=== PATIENT | male | born 1965 | race Caucasian/White ===

== ENCOUNTER 2020-09-27 12:22 | Emergency (ER) | payer SELFPAY ==
[~2020-09-27] VITALS: Ht 182.9 cm; Wt 101.0 kg
[2020-09-27 12:22] VITALS: BP 114/86
[~2020-09-27 12:22] MED LIST: NAPR220C4 PO
--- NOTE | 2020-09-27 13:11 | PHYS DOC ---
Past History Past Medical History: Hepatitis Past Surgical History: Appendectomy, Cholecystectomy, Tonsillectomy Alcohol Use: None Drug Use: None General Adult EDM: Chief Complaint: MULTIPLE COMPLAINTS HPI: HPI: Patient is a 54 year old male with history of hepatitis C who presents with 2 weeks of inability to taste/smell, nasal congestion, diarrhea, poor appetite, and chills. Patient got his first shot from the vaccine approximately 10 days ago. Also com plaining of some muscle aches in his low back. No numbness or weakness. He complains of right upper quadrant discomfort that only comes with defecation. It is not postprandial. States that he has 2 daughters living at home that have had similar cold/flulike symptoms. He believes that they have been tested for Covid, and thinks it was negative. Review of Systems: Review of Systems: Constitutional: Denies fever. Reports chills Eyes: Denies change in visual acuity HENT: Reports nasal congestion. Denies sore throat. Respiratory: Reports mild cough. Denies shortness of breath Cardiovascular: Denies chest pain or edema GI: Reports nausea and diarrhea. Reports poor appetite. Reports occasional right upper quadrant pain. : Denies dysuria Musculoskeletal: Reports low back pain. No joint pain Integument: Denies rash Neurologic: Denies headache, focal weakness or sensory changes Endocrine: Denies polyuria or polydipsia Lymphatic: Denies swollen glands Psychiatric: Denies depression or anxiety Allergies: Allergies: Allergies Coded Allergies Type Severity Reaction Last Updated Verified No Known Drug Allergies 03/17/15 No Physical Exam: PE: Constitutional: Well developed, well nourished, no acute distress, non-toxic appearance. [] HENT: Normocephalic, atraumatic, bilateral external ears normal, oropharynx moist, no oral exudates, nose normal. [] Eyes: PERRLA, EOMI, conjunctiva normal, no discharge. [] Neck: Normal range of motion, no tenderness, supple, no stridor. [] Cardiovascular:Heart rate regular rhythm, no murmur [] Lungs & Thorax: Bilateral breath sounds clear to auscultation [] Abdomen: Soft. Nondistended. Very mild tenderness in the epigastrium and right upper quadrant. No rebound or guarding.. Skin: Warm, dry, no erythema, no rash. [] Back: No tenderness, no CVA tenderness. [] Extremities: No tenderness, no cyanosis, no clubbing, ROM intact, no edema. [] Neurologic: Alert and oriented X 3, normal motor function, normal sensory function, no focal deficits noted. [] Psychologic: Affect normal, judgement normal, mood normal. [] EKG: EKG: [] Radiology/Procedures: Radiology/Procedures: [] Heart Score: C/O Chest Pain: N/A Risk Factors: Risk Factors: DM, Current or recent (<one month) smoker, HTN, HLP, family history of CAD, obesity. Risk Scores: Score 0 - 3: 2.5% MACE over next 6 weeks - Discharge Home Score 4 - 6: 20.3% MACE over next 6 weeks - Admit for Clinical Observation Score 7 - 10: 72.7% MACE over next 6 weeks - Early Invasive Strategies Course & Med Decision Making: Course & Med Decision Making Pertinent Labs and Imaging studies reviewed. (See chart for details) Patient is a 54-year-old male with history of hepatitis C, cholecystectomy, ap pendectomy who presents with 2 weeks of loss of taste/smell, chills, nasal congestion, diarrhea, fatigue, poor appetite, and muscle aches. Reports his daughters have similar symptoms at home. He received his first dose of vaccine for Covid 10 days ago. He is requesting a Covid test. On arrival is afebrile. Hemodynamically stable. Satting well on room air. Appears appropriately hydrated. We will check CBC, CMP, lipase. With his low back pain will check a UA to ensure no hematuria. We will swab for Covid. 1310 During his stay a swab that was obtained earlier this week at [facility] resulted positive. Patient notified staff. CBC, CMP without acute process. UA without signs of infection, but do show some slight dehydration. Vital signs and oxygenation remained stable. Feel he is safe for discharge with expectant management of his Covid infection. 1521 Shantal Disclaimer: Shantal Disclaimer: This electronic medical record was generated, in whole or in part, using a voice recognition dictation system. Departure Departure: Impression: Primary Impression: COVID Disposition: HOME / SELF CARE / HOMELESS Condition: STABLE Referrals: PCP,NO (PCP) Additional Instructions: You have Covid. Please try to stay well-hydrated. If your breathing becomes more difficult please return the emergency department for reevaluation. JUNE,ALISA E MD Sep 27, 2020 13:11
[2020-09-27 14:01] LABS: BASO % 1 % (0-3); EOS % 0 % (0-3); HEMATOCRIT 45.1 % (39.0-53.0); HEMOGLOBIN 15.1 g/dL (13.0-17.5); LYMPH % 21 % (24-48); MEAN CORPUSCULAR HEMOGLOBIN 30 pg (25-35); MEAN CORPUSCULAR HGB CONC 34 g/dL (31-37); MEAN CORPUSCULAR VOLUME 89 fL (79-100); MONO # 0.6 x10^3/uL (0.0-1.1); MONO % 13 % (0-9); NEUT % 65 % (31-73); PLATELET COUNT 156 x10^3/uL (140-400); RED BLOOD COUNT 5.05 x10^6/uL (4.30-5.70); RED CELL DISTRIBUTION WIDTH 13.9 % (11.5-14.5); WHITE BLOOD COUNT 4.6 x10^3/uL (4.0-11.0)
[2020-09-27 14:36] LABS: BACTERIA,URINE 0 /HPF (0-FEW); BILIRUBIN,URINE SMALL (NEG); CLARITY,URINE CLEAR; COLOR,URINE YELLOW; GLUCOSE,URINE NEG (NEG); GRANULAR CASTS,URINE OCC /HPF; HYALINE CASTS, URINE OCC /HPF; NITRITE,URINE NEG (NEG); RBC,URINE OCC /HPF (0-2)
[2020-09-27 15:06] LABS: CALCIUM 9.1 mg/dL (8.5-10.1); GFR 78.5; POTASSIUM 3.5 mmol/L (3.5-5.1)
[2020-09-27 15:11] LABS: ALBUMIN 3.8 g/dL (3.4-5.0); TOTAL BILIRUBIN 0.4 mg/dL (0.2-1.0); TOTAL PROTEIN 7.6 g/dL (6.4-8.2)
== END 2020-09-27 15:35 | disposition home or self-care (01) ==
LOC: ER 12:22
DX: U07.1 COVID-19 (principal); Z90.49 Acquired absence of other specified parts of digestive tract
CPT/HCPCS: 36415; 80053; 81001; 83690; 85025; 99283; C9803; U0003

== ENCOUNTER 2020-10-04 13:23 | Emergency (ER) | payer SELFPAY ==
[~2020-10-04] VITALS: Ht 177.8 cm; Wt 96.6 kg
[2020-10-04] MEDS ORDERED: HYDROcodone/APAP 5/325MG 1 TAB TABLET PO ONE (14:30)
[2020-10-04] MEDS ORDERED: LIDOCAINE 2%/EPI 1:100,000 20 ML VIAL. IJ ONE (14:30)
[2020-10-04] MEDS ORDERED: LIDOCAINE 1%/EPI 1:100,000 20 ML VIAL. IJ ONE (14:45)
--- NOTE | 2020-10-04 16:49 | PHYS DOC ---
Past History Past Medical History: Hepatitis (DEWAYNE WOLF APRN) Past Surgical History: Appendectomy, Cholecystectomy, Tonsillectomy, Other Additional Past Surgical Histo: colon resection for diverticulitis (DEWAYNE WOLF APRN) Alcohol Use: Occasionally Drug Use: None (DEWAYNE WOLF APRN) Adult General Chief Complaint Chief Complaint: HEMORRHOIDS HPI HPI Patient is a 54-year-old male presents to the emergency department reporting sudden onset of hemorrhoid pain. Patient states he was woken up at 2 AM today with 10 out of 10 rectal pain. Patient noticed that he had a hemorrhoid, patient states he wants his hemorrhoid removed today in the emergency department. Patient denies any constipation, denies nausea, vomiting, diarrhea or abdominal pain. Patient denies any recent fever or chills. Patient denies inserting anything into his rectum. Patient denies numbness or tingling to his genitals or periarea. Patient denies any loss of bowel or bladder. Patient denies urinary retention. Patient denies any other physical complaints or physical concerns. (DEWAYNE WOLF APRN) Review of Systems Review of Systems 14 body systems of review of systems have been reviewed. See HPI for pertinent positives and negative responses, otherwise all other systems are negative, nonpertinent or noncontributory. Constitutional: Negative except as outlined in HPI above. Skin: Negative except as outlined in HPI above. Eyes: Negative except as outlined in HPI above. HENT: Negative except as outlined in HPI above. Respiratory: Negative except as outlined in HPI above. Cardiovascular: Negative except as outlined in HPI above. GI: Negative except as outlined in HPI above. : Negative except as outlined in HPI above. Musculoskeletal: Negative except as outlined in HPI above. Integument: Negative except as outlined in HPI above. Neurologic: Negative except as outlined in HPI above. Endocrine: Negative except as outlined in HPI above. Lymphatic: Negative except as outlined in HPI above. Psychiatric: Negative except as outlined in HPI above. (DEWAYNE WOLF APRN) Current Medications Current Medications Current Medications Medications (Trade) Dose Ordered Sig/Joanne Start Time Stop Time Status Last Admin Dose Admin Acetaminophen/ Hydrocodone Bitart (Lortab 5/325) 1 tab 1X ONCE 10/04/20 14:30 10/04/20 14:34 DC 10/04/20 15:10 1 TAB Lidocaine/ Epinephrine (Xylocaine 1%-Epi 1:100,000) 20 ml 1X ONCE 10/04/20 14:45 10/04/20 14:46 DC 10/04/20 15:09 20 ML Lidocaine/ Epinephrine (Xylocaine 2%-Epi 1:100,000) 20 ml 1X ONCE 10/04/20 14:30 10/04/20 14:31 UNV (DEWAYNE WOLF APRN) Allergies Allergies Allergies Coded Allergies Type Severity Reaction Last Updated Verified No Known Drug Allergies 10/04/20 No (DEWAYNE WOLF APRN) Physical Exam Physical Exam Constitutional: Well developed, well nourished, no acute distress, non-toxic appearance. 54-year-old male in no apparent distress. HENT: Normocephalic, atraumatic. Eyes: Conjunctiva normal, no discharge. Neck: Normal range of motion. Cardiovascular: Distal cap refill less than 2 seconds, no cyanosis appreciated. Lungs & Thorax: Patient is in no respiratory distress, no adventitious lung sounds appreciated. Abdomen: Bowel sounds normal, soft, no tenderness, no masses, no pulsatile masses. No bruising or skin discoloration of the abdomen. Skin: Warm, dry, no erythema, no rash. Back: No tenderness, no CVA tenderness. Extremities: No tenderness, no cyanosis, no clubbing, ROM intact, no edema. Neurologic: Alert and oriented X 3, normal motor function, normal sensory function, no focal deficits noted. Psychologic: Affect normal, judgement normal, mood normal. : External rectal exam performed with ED nurse at bedside for desulphuring operator, there is a thrombosed hemorrhoid at the 4 o'clock position. Painful to palpation. Not bleeding. (DEWAYNE WOLF APRN) Current Patient Data Vital Signs Vital Signs Date Time Temp Pulse Resp B/P (MAP) Pulse Ox O2 Delivery O2 Flow Rate FiO2 10/04/20 15:11 64 18 123/79 (94) 98 Room Air 10/04/20 13:30 97.8 (DEWAYNE WOLF APRN) EKG EKG [] (DEWAYNE WOLF APRN) Radiology/Procedures Radiology/Procedures [] (DEWAYNE WOLF APRN) Heart Score C/O Chest Pain: No Risk Factors: Risk Factors: DM, Current or recent (<one month) smoker, HTN, HLP, family history of CAD, obesity. Risk Scores: Risk Factors: DM, Current or recent (<one month) smoker, HTN, HLP, family history of CAD, obesity. (DEWAYNE WOLF APRN) Course & Med Decision Making Course & Med Decision Making Pertinent Labs and Imaging studies reviewed. (See chart for details) 54-year-old male, vital signs reviewed, presents emergency department concerning hemorrhoid pain. Physical examination concerning for thrombosed hemorrhoid. Discussed patient case with ED attending physician Dr. Thompson, patient is within 48 hours of onset of thrombosed hemorrhoid, will perform incision procedure of hemorrhoid. Discussed with patient ED planning and incision procedure of hemorrhoid, patient is amenable to this plan. See I&D note. Discussed with patient strict follow-up with surgeon, must call this coming Tuesday for appointment for evaluation of hemorrhoid and definitive hemorrhoidectomy, will start on antibiotic regimen of Cipro and Flagyl, patient gave verbal understanding of this. Discussed with the patient all findings and diagnostic testing as well as the need to follow-up with their primary care provider for further evaluation and treatment or return to the ED if any new or worsening symptoms. Strict return precautions were also discussed at length, the patient voiced understanding and agreement with the discharge planning. The patient was nontoxic in appearance, in no apparent distress, and hemodynamically stable at the time of disposition. (DEWAYNE WOLF APRN) Dragon Disclaimer Dragon Disclaimer This electronic medical record was generated, in whole or in part, using a voice recognition dictation system. (DEWAYNE WOLF APRN) Incision and Drainage Time: 1650 Confirmed : Patient, procedure, side, and site correct. Consent: Patient has given verbal consent for incision and drainage of rectal hemorrhoid. Indication: Thrombosed hemorrhoid Performed by: Dewayne Iqbal EXPANDER-C Supervision: Dr. Thompson present during procedure for the critical aspects of the procedure including incision and post procedure exam. Preprocedure exam: Circulation, motor, and sensory intact. Procedural sedation: None. Description Location: Rectum 4 o'clock position Anesthesia: 2 cc 1% lidocaine with epinephrine. Preparation: Sterile field established, skin prepped with Betadine solution. Procedure The patient was positioned appropriately. An incision was then made over the thrombosed hemorrhoid using a #11 blade scalpel. Technique: A fluid collection was manually decompressed, wound probed, locu lations decompressed . Drainage : Scant amount of serosanguineous fluid was expressed, no blood clot was expressed. Post procedure exam : Circulation, motor, sensory examination intact. Patient tolerated : Well. Complications: There were no complications. Follow-up: Home care instructions given. Total time: 10 minutes. (DEWAYNE WOLF APRN) Attending Co-Sign The patient was seen and interviewed as well as examined at the bedside. The chart was reviewed. The case was discussed. Agree with the plan of care. (IZABEL THOMPSON DO) Departure Departure: Impression: Primary Impression: Acute hemorrhoid Disposition: HOME / SELF CARE / HOMELESS Condition: GOOD Referrals: PCP,NO (PCP) Patient Instructions: Hemorrhoids Additional Instructions: You were seen in the emergency department today for an acute hemorrhoid with pain. Because this hemorrhoid was less than 48 hours old, an incision was made to help relieve the pressure through drainage. A scant amount of blood was drained. Please use the gauze pad in place to help collect oozing blood over the next 4 to 6 hours followed by a sitz bath this evening as we discussed at length. Please follow-up with a surgeon for definitive hemorrhoidectomy this coming Tuesday. You may choose any surgeon of your choice however you may consider using the [facility] surgical group located at [address] [place] [address] [address] [facility] telephone number area code [phone]. Please call Tuesday for an appointment. I am starting you on 2 different antibiotics, Flagyl and Cipro, please take as directed until completed. Please increase the fiber of your diet and continue to use stool softeners to help relief of pain. Because your pain is directly related to your GI system, narcotic pain relievers such as Jeanerette or Vicodin are not indicated because of their tendency to cause constipation. You may use Tylenol or Motrin [id number] for pain and discomfort. Please return to the emergency room for worsening symptoms or other concerns. Thank you for visiting our Emergency Department. It was a pleasure taking care of you today in the emergency department and we appreciate you trusting us with your care. If any additional problems come up don't hesitate to return to visit us. Please follow up with your primary care provider so they can plan additional care if needed and know about the problem that you had. If symptoms worsen come back to the Emergency Department. Any concerning symptoms that start such as chest pain, shortness of air, weakness or numbness on one side of the body, running high fevers or any other concerning symptoms return to the ER. EMERGENCY DEPARTMENT GENERAL DISCHARGE INSTRUCTIONS Thank you for coming to [facility] (ED) today and trusting us with you care. We trust that you had a positivie experience in our Emergency Department. If you wish to speak to the department management, you may call the director at [phone]. YOUR FOLLOW UP INSTRUCTIONS ARE FOLLOWS: 1. Do you have a private Doctor? If you do not have a private doctor, please ask for a resource list of physicians or clinics that may be able to assist you with follow up care. 2. The Emergency Physician has interpreted your x-rays. The X-Ray specialist will also review them. If there is a change in the findings, you will be notified in 48 hours when at all possible. 3. A lab test or culture has been done, your results will be reviewed and you will be notified if you need a change in treatment. ADDITIONAL INSTRUCTIONS AND INFORMATION: 1. Your care today has been supervised by a physician who is specially trained in emergency care. Many problems require more than one evaluation for a complete diagnosis and treatment. We recommend that you schedule your follow up appointment as recommended to ensure complete treatment of you illness or injury. If you are unable to obtain follow up care and continue to have a problem, or if your condition worsens, we recommend that you return to the ED. 2. We are not able to safely determine your condition over the phone nor are we able to give sound medical advice over the phone. For these safety reasons, if you call for medical advice we will ask you to come to the ED for further evaluation. 3. If you have any questions regarding these discharge instructions please call the ED at [phone]. SAFETY INFORMATION: In the interest of safety, wellness, and injury prevention; we encourage you to wear your sealbelt, if you smoke; quite smoking, and we encourage family to use a protective helmet for bicycling and other sporting events that present an increased risk for head injury. IF YOUR SYMPTOMS WORSEN OR NEW SYMPTOMS DEVELOP, OR YOU HAVE CONCERNS ABOUT YOUR CONDITION; OR IF YOUR CONDITION WORSENS WHILE YOU ARE WAITING FOR YOUR FOLLOW UP APPOINTMENT; EITHER CONTACT YOUR PRIMARY CARE DOCTOR, THE PHYSICIAN WHOSE NAME AND NUMBER YOU WERE GIVEN, OR RETURN TO THE ED IMMEDIATELY. Scripts Ciprofloxacin Hcl (CIPRO) 500 Mg Tablet 1 TAB PO BID for hemorrhoid for 7 Days, #14 TAB 0 Refills Prov: DEWAYNE WOLF APRN 10/04/20 Metronidazole (FLAGYL) 500 Mg Tablet 1 TAB PO BID for hemorroids, #14 TAB 0 Refills Prov: DEWAYNE WOLF APRN 10/04/20 DEWAYNE WOLF APRN Oct 04, 2020 16:49 IZABEL THOMPSON DO Oct 07, 2020 15:39
[2020-10-04] MEDS ORDERED: CIPR500T94 PO (16:57)
[2020-10-04] MEDS ORDERED: METR500T PO (16:57)
[2020-10-04 17:07] VITALS: BP 128/77
== END 2020-10-04 17:07 | disposition home or self-care (01) ==
LOC: ER 13:23
DX: K64.5 Perianal venous thrombosis (principal); Z90.49 Acquired absence of other specified parts of digestive tract
CPT/HCPCS: 46083; 99284-25

== ENCOUNTER 2021-02-24 11:39 | Emergency (ER) | payer SELFPAY ==
[~2021-02-24] VITALS: Ht 177.8 cm; Wt 96.6 kg
[~2021-02-24 11:39] MED LIST changes: +CIPR500T94 PO; +METR500T PO
[2021-02-24] MEDS ORDERED: CONTRAST GIVEN. MC PRN (12:30)
[2021-02-24] MEDS ORDERED: IOHEXOL 350 MG/ML 100 ML VIAL. IV ONE (12:30)
--- NOTE | 2021-02-24 12:39 | PHYS DOC ---
Past History Past Medical History: Hepatitis Past Surgical History: Appendectomy, Cholecystectomy, Tonsillectomy, Other Additional Past Surgical Histo: colon resection for diverticulitis Alcohol Use: Occasionally Drug Use: None General Adult EDM: Chief Complaint: NEURO SYMPTOMS/DEFICITS HPI: HPI: Patient is a 55-year-old male coming in for tingling decreased sensation to his left face. Started as a quarter size lesion on his cheek, first noticed it when he woke up at 930. Sensation was not there when he went to bed at 1 AM. Has now spread to the lower half of his face and upper left neck, also states there is tingling on his left side of his tongue. Denies any ear pain or fullness, no decrease sensation he states also when he blinks hard and opens his diet there is a small blurred spot in the left lower field that goes away quickly. Denies any medical history but does not regularly visit a physician. Does not take any medications. Has a history of stroke in his family. Does not smoke cigarettes but uses chewing tobacco, makes a couple of beers per week, denies any recent drug use in the past 3 months. Patient had Covid about 6 months ago but received his [employer] vaccine 3 months ago. Review of Systems: Review of Systems: All other systems within normal limits except for as noted in the HPI Current Medications: Current Meds: Current Medications Medications (Trade) Dose Ordered Sig/Joanne Start Time Stop Time Status Last Admin Dose Admin Info (Do NOT chart on this entry -- for MONITORING) 1 each PRN DAILY PRN 02/24/21 12:30 02/26/21 12:29 Iohexol (Omnipaque 350 Mg/ml) 100 ml 1X ONCE 02/24/21 12:30 02/24/21 12:31 Allergies: Allergies: Allergies Coded Allergies Type Severity Reaction Last Updated Verified No Known Drug Allergies 10/04/20 No Physical Exam: PE: Constitutional: Well developed, well nourished, no acute distress, non-toxic appearance. [] HENT: Normocephalic, atraumatic, bilateral external ears normal, nose normal. [] Eyes: PERRLA, conjunctiva normal, no discharge. [] Neck: No rigidity, supple, no stridor. [] Cardiovascular: Regular rate and rhythm, brisk cap refill [] Lungs & Thorax: Non labored symmetric respirations, no tachypnea or respiratory distress [] Abdomen: Soft, nondistended. Skin: Warm, dry, no erythema, no rash. [] Back: Unremarkable Extremities: No deformities, range of motion grossly intact, no lower extremity edema [] Neurologic: Alert and oriented X 3, no deficits of facial muscles, echo documents intact, subjective decrease sensation on left side of face below eye Psychologic: Affect normal, judgement normal, mood normal. [] Current Patient Data: Vital Signs: Vital Signs Date Time Temp Pulse Resp B/P (MAP) Pulse Ox O2 Delivery O2 Flow Rate FiO2 02/24/21 12:00 98.2 68 18 157/100 (325) 95 Room Air EKG: EKG: Sinus rhythm, heart rate 50 beats minute, normal axis, no ST elevation or depression, no ectopy. [] Radiology/Procedures: Radiology/Procedures: [address] [address] IMAGING REPORT Signed PATIENT: DIA CID ACCOUNT: [id number] : 1965 LOCATION: ER AGE: 55 SEX: M EXAM STATUS: REG ER ORD. PHYSICIAN: AMANDA AMOS MD REASON: left face numbnes PROCEDURE: CT ANGIOGRAPHY HEAD AND NECK CTA HEAD AND NECK W/WO CONTRAST History:Reason: left face numbnes / Spl. Instructions: OMNI 350 100 ML / History: Technique: Noncontrast head CT was performed in correlation with this exam. After bolus of intravenous contrast, volumetric CT data acquisition was acquired of the head and neck. Multiplanar reconstruction images to include MIP and 3-D reconstruction images are submitted. Exposure: One or more of the following individualized dose reduction techniques were utilized for this examination: 1. Automated exposure control 2. Adjustment of the mA and/or kV according to patient size 3. Use of iterative reconstruction technique. Comparison: None Any determination of stenosis is based on NASCET criteria. Noncontrast CT head: No intracranial hemorrhage. No mass effect. No hydrocephalus. Extra-axial spaces are unremarkable. Imaged orbits are unremarkable. Bilateral maxillary sinus moderate mucosal thickening with secretions. Mild scattered ethmoid and sphenoid sinus mucosal thickening. Bilateral mastoid effusions, left greater than right. Head CTA: ICA: No stenosis, occlusion or aneurysm. MCA: No stenosis, occlusion or aneurysm. HERNAN: No stenosis, occlusion or aneurysm. ARTISTIC DIRECTOR: No stenosis, occlusion or aneurysm. Basilar artery: No stenosis, occlusion or aneurysm. Distal vertebral arteries: No stenosis, occlusion or aneurysm. Patent superior sagittal, straight, transverse and sigmoid venous sinuses. CT angiogram neck: Aortic arch: Conventional arch anatomy. Common carotid arteries: No stenosis, occlusion or dissection. Internal carotid arteries: No stenosis, occlusion or dissection. External carotid arteries: Patent Vertebral arteries: No stenosis, occlusion or dissection. Mild paraseptal emphysema. Bones: No pathologic osseous lesions. Impression: 1. No acute intracranial abnormality. 2. No arterial stenosis or occlusion within the head or neck. 3. Paranasal sinus disease. Electronically signed by: Fahad Walton DO (02/24/2021 1:31 PM) [facility] DICTATED AND SIGNED BY: FAHAD WALTON DO DATE: 02/24/21 1313 CC: AMANDA AMOS MD; JASE MATHEWS MD ~MTH0 0 [] Heart Score: C/O Chest Pain: No Risk Factors: Risk Factors: DM, Current or recent (<one month) smoker, HTN, HLP, family history of CAD, obesity. Risk Scores: Score 0 - 3: 2.5% MACE over next 6 weeks - Discharge Home Score 4 - 6: 20.3% MACE over next 6 weeks - Admit for Clinical Observation Score 7 - 10: 72.7% MACE over next 6 weeks - Early Invasive Strategies Course & Med Decision Making: Course & Med Decision Making Pertinent Labs and Imaging studies reviewed. (See chart for details) Patient symptoms not progressing. Discussed disposition with patient's primary care provider Dr. Garcia. This patient does not have insurance yet he wants him to follow-up in clinic since the work-up was unremarkable. He wants to send him to see neurology as an outpatient. Discussed strict return precautions with patient evolution of a blistering rash. [] Shantal Disclaimer: Shantal Disclaimer: This electronic medical record was generated, in whole or in part, using a voice recognition dictation system. Departure Departure: Impression: Primary Impression: Facial paresthesia Disposition: HOME / SELF CARE / HOMELESS Condition: STABLE Referrals: JASE MATHEWS MD (PCP) Patient Instructions: Paresthesia Additional Instructions: Follow-up with your primary care provider at the walk-in clinic today or marilu . Watch for signs of rash or blistering of your left face, if it occurs return immediately to the emergency department or your primary care provider. AMANDA AMOS MD Feb 24, 2021 12:39
[2021-02-24 13:07] LABS: BASO % 1 % (0-3); EOS # 0.2 x10^3/uL (0.0-0.7); EOS % 3 % (0-3); HEMATOCRIT 40.3 % (39.0-53.0); HEMOGLOBIN 13.4 g/dL (13.0-17.5); LYMPH # 1.4 x10^3/uL (1.0-4.8); LYMPH % 21 % (24-48); MEAN CORPUSCULAR HEMOGLOBIN 30 pg (25-35); MEAN CORPUSCULAR HGB CONC 33 g/dL (31-37); MEAN CORPUSCULAR VOLUME 90 fL (79-100); MONO # 0.8 x10^3/uL (0.0-1.1); MONO % 12 % (0-9); NEUT # 4.2 x10^3uL (1.8-7.7); NEUT % 63 % (31-73); PLATELET COUNT 91 x10^3/uL (140-400); RED BLOOD COUNT 4.46 x10^6/uL (4.30-5.70); RED CELL DISTRIBUTION WIDTH 12.6 % (11.5-14.5); WHITE BLOOD COUNT 6.7 x10^3/uL (4.0-11.0)
--- NOTE | 2021-02-24 13:10 | EKG ---
[address] [address] Test Date: 2021-02-24 Test Time: 12:51:12 Pat Name: DIA CID Department: Room: Gender: M Record Pressman: ALBERTA : 1965 Requested By: AMANDA AMOS Order Number: [id number] Reading MD: Jamar Fitch Measurements Intervals [place] Rate: 59 P: 48 NV: 196 QRS: 1 QRSD: 100 T: 24 QT: 396 QTc: 396 Interpretive Statements SINUS RHYTHM Electronically Signed On 02-26-2021 15:06:39 PRODUCTION CONTROLLER by Jamar Fitch
[2021-02-24 13:17] LABS: CALCIUM 8.2 mg/dL (8.5-10.1); GFR 78.2; POTASSIUM 3.9 mmol/L (3.5-5.1)
[2021-02-24 13:25] LABS: ALBUMIN 3.4 g/dL (3.4-5.0); ALBUMIN/GLOBULIN RATIO 1.2 (1.0-1.7); C REACTIVE PROTEIN 4.4 mg/L (0-3.3); MAGNESIUM 2.3 mg/dL (1.8-2.4); PHOSPHORUS 3.1 mg/dL (2.6-4.7); TOTAL BILIRUBIN 0.3 mg/dL (0.2-1.0); TOTAL PROTEIN 6.3 g/dL (6.4-8.2)
--- NOTE | 2021-02-24 13:33 | RAD ---
CTA HEAD AND NECK W/WO CONTRAST History:Reason: left face numbnes / Spl. Instructions: OMNI 350 100 ML / History: Technique: Noncontrast head CT was performed in correlation with this exam. After bolus of intravenou s contrast, volumetric CT data acquisition was acquired of the head and neck. Multiplanar reconstruct ion images to include MIP and 3-D reconstruction images are submitted. Exposure: One or more of the following individualized dose reduction techniques were utilized for thi s examination: 1. Automated exposure control 2. Adjustment of the mA and/or kV according to patient size 3. Use of iterative reconstruction technique. Comparison: None Any determination of stenosis is based on NASCET criteria. Noncontrast CT head: No intracranial hemorrhage. No mass effect. No hydrocephalus. Extra-axial spaces are unremarkable. Imaged orbits are unremarkable. Bilateral maxillary sinus moderate mucosal thickening with secretions . Mild scattered ethmoid and sphenoid sinus mucosal thickening. Bilateral mastoid effusions, left gre ater than right. Head CTA: ICA: No stenosis, occlusion or aneurysm. MCA: No stenosis, occlusion or aneurysm. HERNAN: No stenosis, occlusion or aneurysm. PASTE MIXER: No stenosis, occlusion or aneurysm. Basilar artery: No stenosis, occlusion or aneurysm. Distal vertebral arteries: No stenosis, occlusion or aneurysm. Patent superior sagittal, straight, transverse and sigmoid venous sinuses. CT angiogram neck: Aortic arch: Conventional arch anatomy. Common carotid arteries: No stenosis, occlusion or dissection. Internal carotid arteries: No stenosis, occlusion or dissection. External carotid arteries: Patent Vertebral arteries: No stenosis, occlusion or dissection. Mild paraseptal emphysema. Bones: No pathologic osseous lesions. Impression: 1. No acute intracranial abnormality. 2. No arterial stenosis or occlusion within the head or neck. 3. Paranasal sinus disease. Electronically signed by: Fahad Walton DO (02/24/2021 1:31 PM) [facility] [place]
[2021-02-24 14:05] VITALS: BP 132/68
[2021-02-24 15:10] LABS: BACTERIA,URINE 0 /HPF (0-FEW); BILIRUBIN,URINE NEG (NEG); CLARITY,URINE CLEAR; GLUCOSE,URINE NEG (NEG); NITRITE,URINE NEG (NEG); RBC,URINE 0 /HPF (0-2); UROBILINOGEN,URINE 0.2 mg/dL (0.2 mg/dL); WBC,URINE 0 /HPF (0-4)
[2021-02-24 15:11] LABS: COLOR,URINE YELLOW
== END 2021-02-24 14:37 | disposition home or self-care (01) ==
LOC: ER 11:39
DX: R20.2 Paresthesia of skin (principal)
CPT/HCPCS: 36415; 70496; 70498; 80053; 81001; 83735; 84100; 85025; 85610; 86140; 93005; 99285; Q9967

== ENCOUNTER 2021-02-27 00:19 | Emergency (ER) | payer SELFPAY ==
[~2021-02-27] VITALS: Ht 177.8 cm; Wt 99.1 kg
--- NOTE | 2021-02-27 00:39 | PHYS DOC ---
Past History Past Medical History: Hepatitis Past Surgical History: Appendectomy, Cholecystectomy, Tonsillectomy, Other Additional Past Surgical Histo: colon resection for diverticulitis Alcohol Use: None Drug Use: None General Adult HPI: HPI: ". I had this numbness on my Lt. upper lip....and my Lt. lower ankle... it been off and on since I was here the 4th.. of this month... and I will not be able to see a neurology until next month.. to night the upper lip numbness seems worse.. and is now on Rt. side.. " Patient is a 55 year old male who presents with above hx of Lt facial numbness and Lt lower quick numbness. Pt. had the same symptoms since 02/24/2021 ED visit. Patient however concerned tonight at approximately 1700 hrs. he noticed that may be the right upper lip lip was numb. Patient states the numbness on his face has been intermittent. Initially it was a size of a quarter on his left cheek. Numbness now seems to be more localized to his upper left lip. Patient denies any trauma. Patient denies any fever or chills. Patient denies any recent travel. Patient denies any recent changes in meds. Patient has past significant medical history of hepatitis, tobacco use, colon resection for diverticulitis, hemorrhoids, sinusitis and alcohol abuse. Pt. states he no longer uses tobacco. Pt. follows with Dr. Matehws. Review of Systems: Review of Systems: Constitutional: Denies fever or chills Eyes: Denies change in visual acuity HENT: Denies nasal congestion or sore throat Respiratory: Denies cough or shortness of breath Cardiovascular: Denies chest pain or edema GI: Denies abdominal pain, nausea, vomiting, bloody stools or diarrhea : Denies dysuria Musculoskeletal: Denies back pain or joint pain Integument: Denies rash Neurologic: Denies headache, focal weakness or sensory changes. Complains of upper lip and left quick numb areas. Endocrine: Denies polyuria or polydipsia Lymphatic: Denies swollen glands Psychiatric: Denies depression or anxiety Family History: Family History: Family history of CVA 's Current Medications: Current Meds: See nursing for home meds Allergies: Allergies: Allergies Coded Allergies Type Severity Reaction Last Updated Verified No Known Drug Allergies 10/04/20 No Physical Exam: PE: Constitutional: no acute distress, non-toxic appearance. [] HENT: Normocephalic, atraumatic, bilateral external ears normal, oropharynx moist, no oral exudates, nose normal. Complains of numbness to upper lip that comes and goes. Eyes: PERRLA, EOMI, conjunctiva normal, no discharge. [] Teardrop tattoos left canthus Neck: Normal range of motion, no tenderness, supple, no stridor. [] Cardiovascular:Heart rate regular rhythm, no murmur []. PMI slightly to the left, Decreased dorsal and posterior pedal pulses. Lungs & Thorax: Bilateral breath sounds clear to auscultation [] Abdomen: Bowel sounds normal, soft, no tenderness, no masses, no pulsatile masses. Old surgery scars Skin: Warm, dry, no erythema, no rash. Tattoos Back: No tenderness, no CVA tenderness. [] Extremities: No tenderness, no cyanosis, no clubbing, ROM intact, no edema. [] Neurologic: Alert and oriented X 3, normal motor function, normal sensory function, no focal deficits noted. DTRs +2 patella brachial. Patient ambulatory without problems. No drift. Digital Strategy Specialist equal. Right-hand dominant. NIH 1 Psychologic: Affect anxious, judgement normal, mood normal. [] EKG: EKG: My interpretation EKG shows sinus rhythm at 72 bpm. Mild leftward axis. Time of EKG is 115 hours [] Radiology/Procedures: Radiology/Procedures: [[address] [address] IMAGING REPORT Signed PATIENT: DIA CID ACCOUNT: [id number] : 1965 LOCATION: ER AGE: 55 SEX: M EXAM STATUS: REG ER ORD. PHYSICIAN: DUSTY KEATING MD REASON: facial numbness, leg numbnes PROCEDURE: CT CODE STROKE HEAD WO EXAM: CT Head without IV contrast CLINICAL HISTORY: facial numbness, leg numbness COMPARISON: None. TECHNIQUE: Routine CT of the head without contrast. PQRS compliance statement - One or more of the following individualized dose reduction techniques were utilized for this study: 1. Automated exposure control 2. Adjustment of the mA and/or kV according to patient size 3. Use of iterative reconstruction technique FINDINGS: There is no evidence of hemorrhage, mass or extra-axial fluid collection. Mills-white differentiation is maintained with no evidence of edema. There is no mass effect or shift of the intracranial structures. The ventricles, basilar cisterns and cortical sulci are normal in size and configuration for the patients stated age. The cerebellum and brainstem are unremarkable. The calvarium demonstrates no evidence of fracture or focal lesion. There is normal aeration of the visualized paranasal sinuses and mastoid air cells. The visualized portions of the orbits are normal. IMPRESSION: No evidence for acute intracranial process. Findings discussed with DUSTY KEATING MD at 02/27/2021 1:07 AM. FOR INTERNAL CODING PURPOSES RESULT CODE: (C) Electronically signed by: Carlos Snell MD (02/27/2021 1:08 AM) [facility] DICTATED AND SIGNED BY: CARLOS SNELL MD DATE: 02/27/21 0104 CC: JASE MATHEWS MD; DUSTY KEATING MD ~[facility]0 0 ][place] [address] IMAGING REPORT Signed PATIENT: DIA CID ACCOUNT: [id number] : 1965 LOCATION: ER AGE: 55 SEX: M EXAM STATUS: REG ER ORD. PHYSICIAN: DUSTY KEATING MD REASON: dyspnea PROCEDURE: PORTABLE CHEST 1V EXAM: AP View of the chest DATE: 02/27/2021 1:04 AM INDICATION: Reason: dyspnea / Spl. Instructions: / History: COMPARISON: No Prior FINDINGS: The heart is not enlarged. Mediastinal and hilar contours are normal. 15 mm opacity right midlung. No focal consolidative airspace opacity. Mild emphysematous change. No pleural effusion or pneumothorax. IMPRESSION: 1. No radiographic evidence for acute cardiopulmonary process. 2. 15 mm nodular opacity right midlung. Nonemergent CT evaluation is recommended. Electronically signed by: Carlos Snell MD (02/27/2021 1:33 AM) [facility] DICTATED AND SIGNED BY: CARLOS SNELL MD DATE: 02/27/21 0131 CC: JASE MATHEWS MD; DUSTY KEATING MD ~MTH0 0 Heart Score: C/O Chest Pain: N/A HEART Score for Chest Pain: HEART Score for Chest Pain Response (Comments) Value History Slighlty/Non-Suspicious 0 ECG Normal 0 Age >45 - < 65 1 Risk Factors 1 or 2 Risk Factors 1 Troponin < Normal Limit 0 Total 2 Risk Factors: Risk Factors: DM, Current or recent (<one month) smoker, HTN, HLP, family history of CAD, obesity. Risk Scores: Score 0 - 3: 2.5% MACE over next 6 weeks - Discharge Home Score 4 - 6: 20.3% MACE over next 6 weeks - Admit for Clinical Observation Score 7 - 10: 72.7% MACE over next 6 weeks - Early Invasive Strategies Course & Med Decision Making: Course & Med Decision Making Pertinent Labs and Imaging studies reviewed. (See chart for details) Reviewed labs with patient, reviewed CTs scan with patient. Currently patient declines admission at this time. Patient to take a daily baby aspirin or half an aspirin until follow-up with Dr. Mathews. Patient to avoid all tobacco products. Patient reduce his alcohol intake. Patient return if any concerns. Keep neurology follow-up. Impression: 1. Intermittent numbness upper lip and left quick above ankle 2. Thrombocytopenia 124 3. Marijuana use 4. Chronic sinus disease 5. Peripheral vascular disease [] Dragon Disclaimer: Dragon Disclaimer: This electronic medical record was generated, in whole or in part, using a voice recognition dictation system. Departure Departure: Referrals: JASE MATHEWS MD (PCP) Dragon Disclaimer This chart was dictated in whole or in part using Voice Recognition software in a busy, high-work load, and often noisy Emergency Department environment. It may contain unintended and wholly unrecognized errors or omissions. Dragon Disclaimer This chart was dictated in whole or in part using Voice Recognition software in a busy, high-work load, and often noisy Emergency Department environment. It may contain unintended and wholly unrecognized errors or omissions. DUSTY KEATING MD Feb 27, 2021 00:38
[2021-02-27] MEDS ORDERED: IV RINGERS SOLUTION,LACTATED 1,000 ML IV SCH (00:45)
--- NOTE | 2021-02-27 01:11 | RAD ---
EXAM: CT Head without IV contrast CLINICAL HISTORY: facial numbness, leg numbness COMPARISON: None. TECHNIQUE: Routine CT of the head without contrast. PQRS compliance statement - One or more of the following individualized dose reduction techniques wer e utilized for this study: 1. Automated exposure control 2. Adjustment of the mA and/or kV according to patient size 3. Use of iterative reconstruction technique FINDINGS: There is no evidence of hemorrhage, mass or extra-axial fluid collection. Mills-white differentiation is maintained with no evidence of edema. There is no mass effect or shift of the intracranial structures. The ventricles, basilar cisterns and cortical sulci are normal in size and configuration for the tran ents stated age. The cerebellum and brainstem are unremarkable. The calvarium demonstrates no evidence of fracture or focal lesion. There is normal aeration of the visualized paranasal sinuses and mastoid air cells. The visualized portions of the orbits are normal. IMPRESSION: No evidence for acute intracranial process. Findings discussed with DUSTY KEATING MD at 02/27/2021 1:07 AM. FOR INTERNAL CODING PURPOSES RESULT CODE: (C) Electronically signed by: Carlos Rodriguez MD (02/27/2021 1:08 AM) [facility]
--- NOTE | 2021-02-27 01:22 | EKG ---
[address] [address] Test Date: 2021-02-27 Test Time: 01:15:45 Pat Name: DIA CID Department: Room: Gender: M Tech Intern: : 1965 Requested By: DUSTY KEAITNG Order Number: [id number] Reading MD: Jamar Fitch Measurements Intervals [place] Rate: 72 P: 40 OK: 178 QRS: -18 QRSD: 98 T: 19 QT: 378 QTc: 415 Interpretive Statements SINUS RHYTHM LEFTWARD AXIS Electronically Signed On 02-27-2021 14:24:33 DENTAL DIRECTOR by Jamar Fitch
[2021-02-27] MEDS ORDERED: ASPIRIN 325 MG TABLET PO ONE (01:30)
--- NOTE | 2021-02-27 01:36 | RAD ---
EXAM: AP View of the chest DATE: 02/27/2021 1:04 AM INDICATION: Reason: dyspnea / Spl. Instructions: / History: COMPARISON: No Prior FINDINGS: The heart is not enlarged. Mediastinal and hilar contours are normal. 15 mm opacity right midlung. No focal consolidative airspace opacity. Mild emphysematous change. No pleural effusion or pneumothorax. IMPRESSION: 1. No radiographic evidence for acute cardiopulmonary process. 2. 15 mm nodular opacity right midlung. Nonemergent CT evaluation is recommended. Electronically signed by: Carlos Rodriguez MD (02/27/2021 1:33 AM) [facility]
[2021-02-27 01:49] LABS: BASO # 0.1 x10^3/uL (0.0-0.2); BASO % 1 % (0-3); EOS # 0.2 x10^3/uL (0.0-0.7); EOS % 3 % (0-3); HEMATOCRIT 41.9 % (39.0-53.0); LYMPH # 1.5 x10^3/uL (1.0-4.8); LYMPH % 18 % (24-48); MEAN CORPUSCULAR HEMOGLOBIN 30 pg (25-35); MEAN CORPUSCULAR HGB CONC 33 g/dL (31-37); MEAN CORPUSCULAR VOLUME 90 fL (79-100); MONO # 1.1 x10^3/uL (0.0-1.1); MONO % 13 % (0-9); NEUT # 5.4 x10^3uL (1.8-7.7); NEUT % 65 % (31-73); PLATELET COUNT 124 x10^3/uL (140-400); RED BLOOD COUNT 4.65 x10^6/uL (4.30-5.70); RED CELL DISTRIBUTION WIDTH 12.7 % (11.5-14.5); WHITE BLOOD COUNT 8.3 x10^3/uL (4.0-11.0)
[2021-02-27 02:00] LABS: CALCIUM 8.8 mg/dL (8.5-10.1); CREATININE 0.9 mg/dL (0.7-1.3); GFR 88.3; POTASSIUM 4.1 mmol/L (3.5-5.1)
[2021-02-27 02:13] LABS: ALBUMIN 3.8 g/dL (3.4-5.0); DIRECT BILIRUBIN 0.1 mg/dL (0.0-0.2); MAGNESIUM 2.5 mg/dL (1.8-2.4); TOTAL BILIRUBIN 0.2 mg/dL (0.2-1.0); TOTAL PROTEIN 7.4 g/dL (6.4-8.2)
[2021-02-27 02:36] LABS: BARBITURATES NEG (NEG); BENZODIAZEPINES NEG (NEG); CANNABINOIDS POS (NEG); COCAINE NEG (NEG); METHADONE NEG (NEG); OPIATES NEG (NEG); PHENCYCLIDINE NEG (NEG)
[2021-02-27 02:40] LABS: AMPHETAMINE/METHAMPHETAMINE NEG (NEG)
[2021-02-27 02:41] LABS: BILIRUBIN,URINE NEG (NEG); CLARITY,URINE CLEAR; COLOR,URINE YELLOW; GLUCOSE,URINE NEG (NEG); NITRITE,URINE NEG (NEG); UROBILINOGEN,URINE 0.2 mg/dL (0.2 mg/dL)
[2021-02-27 02:42] LABS: BACTERIA,URINE 0 /HPF (0-FEW); SQUAMOUS EPITHELIAL CELL,UR OCC /LPF; WBC,URINE RARE /HPF (0-4)
[2021-02-27 03:50] VITALS: BP 124/82
== END 2021-02-27 03:55 | disposition home or self-care (01) ==
LOC: ER 00:19
DX: R20.0 Anesthesia of skin (principal); D69.6 Thrombocytopenia, unspecified; I73.9 Peripheral vascular disease, unspecified; J32.9 Chronic sinusitis, unspecified; F12.90 Cannabis use, unspecified, uncomplicated; Z20.822 Contact with and (suspected) exposure to COVID-19
CPT/HCPCS: 36415; 70450; 71045; 80048; 80076; 80307; 81001; 82550; 83690; 83735; 83880; 84443; 84484; 85025; 85379; 85610; 85730; 86140; 87426; 93005; 96360; 96361; 99285; C9803; J7120; U0003

== ENCOUNTER 2021-03-22 06:58 | Emergency (ER) | payer SELFPAY ==
[~2021-03-22] VITALS: Ht 177.8 cm; Wt 101.5 kg
--- NOTE | 2021-03-22 07:27 | PHYS DOC ---
Past History Past Medical History: Hepatitis Past Surgical History: Appendectomy, Cholecystectomy, Tonsillectomy, Other Additional Past Surgical Histo: colon resection for diverticulitis Additional Smoking Information: STOPPED CHEWING 2 WEEKS AGO Alcohol Use: Occasionally Drug Use: None Social History Narrative: LAST USED LAST NOC General Adult EDM: Chief Complaint: Shortness of breath HPI: HPI: 55-year-old male presents via EMS with shortness of breath. He has been feeling short of breath for the last 2 to 3 days. He describes it as breathing normally most of the time but then needing to take a deep breath every once in a while. He thinks this is unusual. Patient has no history of lung problems. He had COVID-19 more than 6 months ago. Denies chest pain or diaphoresis. He also has not been sleeping well lately. His only daily medication is an antacid which he does not take every single day. Review of Systems: Review of Systems: Constitutional: Denies fever or chills Eyes: Denies change in visual acuity HENT: Denies nasal congestion or sore throat Respiratory: shortness of breath Cardiovascular: Denies chest pain or edema GI: Denies abdominal pain, nausea, vomiting, bloody stools or diarrhea : Denies dysuria Musculoskeletal: Denies back pain or joint pain Integument: Denies rash Neurologic: Denies headache, focal weakness or sensory changes Endocrine: Denies polyuria or polydipsia Lymphatic: Denies swollen glands Psychiatric: Denies depression or anxiety Current Medications: Current Meds: Current Medications Medications (Trade) Dose Ordered Sig/Joanne Start Time Stop Time Status Last Admin Dose Admin Sodium Chloride 1,000 ml @ 1,000 mls/hr 1X ONCE 03/22/21 07:30 03/22/21 08:29 Allergies: Allergies: Allergies Coded Allergies Type Severity Reaction Last Updated Verified No Known Drug Allergies 03/22/21 No Physical Exam: PE: Constitutional: Well developed, well nourished, obese, no acute distress, non- toxic appearance. [] HENT: Normocephalic, atraumatic, bilateral external ears normal, oropharynx moist, no oral exudates, nose normal. [] Eyes: PERRLA, EOMI, conjunctiva normal, no discharge. [] Neck: Normal range of motion, no tenderness, supple, no stridor. [] Cardiovascular: Heart rate 87, regular rhythm, no murmur [] Lungs & Thorax: Bilateral breath sounds clear to auscultation [] Abdomen: Bowel sounds normal, soft, no tenderness, no masses, no pulsatile masses. [] Skin: Warm, dry, no erythema, no rash. [] Back: No tenderness, no CVA tenderness. [] Extremities: No tenderness, no cyanosis, no clubbing, ROM intact, no edema. [] Neurologic: Alert and oriented X 3, normal motor function, normal sensory function, no focal deficits noted. [] Psychologic: Affect normal, judgement normal, mood anxious. [] Current Patient Data: Vital Signs: Vital Signs Date Time Temp Pulse Resp B/P (MAP) Pulse Ox O2 Delivery O2 Flow Rate FiO2 03/22/21 07:03 97.9 86 18 151/105 (120) 95 Room Air EKG: EKG: [] Radiology/Procedures: Radiology/Procedures: [] Impressions: EXAM: XR CHEST 1V 03/22/2021 7:30 AM CLINICAL INDICATION: Shortness of breath COMPARISON: Chest radiograph 02/27/2021 TECHNIQUE: AP upright view of the chest FINDINGS: The heart is normal in size. Lungs are adequately expanded. No consolidation, pleural effusion, or pneumothorax. No acute osseous abnormality. IMPRESSION: No acute cardiopulmonary abnormality. Electronically signed by: Deanna Vance MD (03/22/2021 7:41 AM) [id number] DICTATED AND SIGNED BY: DEANNA VANCE MD DATE: 03/22/21 0739 CC: IZABEL THOMPSON DO; JASE MATHEWS MD ~MTH0 0 Heart Score: C/O Chest Pain: No Risk Factors: Risk Factors: DM, Current or recent (<one month) smoker, HTN, HLP, family history of CAD, obesity. Risk Scores: Score 0 - 3: 2.5% MACE over next 6 weeks - Discharge Home Score 4 - 6: 20.3% MACE over next 6 weeks - Admit for Clinical Observation Score 7 - 10: 72.7% MACE over next 6 weeks - Early Invasive Strategies Course & Med Decision Making: Course & Med Decision Making Pertinent Labs and Imaging studies reviewed. (See chart for details) The patient's chest x-ray is negative for acute findings. His labs are unremarkable. I did give the patient an albuterol breathing treatment per his request. I believe the patient is just anxious about his health. His COVID and influenza were negative. He is stable for discharge at this time. [] Dragon Disclaimer: Dragon Disclaimer: This electronic medical record was generated, in whole or in part, using a voice recognition dictation system. Departure Departure: Impression: Primary Impression: Shortness of breath Additional Impression: Anxiety about health Disposition: HOME / SELF CARE / HOMELESS Condition: STABLE Referrals: JASE MATHEWS MD (PCP) Patient Instructions: Shortness of Breath, [id number] IZABEL THOMPSON DO Mar 22, 2021 07:27
[2021-03-22] MEDS ORDERED: IV NORMAL SALINE 1,000ML 1,000 ML IV ONE (07:30)
--- NOTE | 2021-03-22 07:43 | RAD ---
EXAM: XR CHEST 1V 03/22/2021 7:30 AM CLINICAL INDICATION: Shortness of breath COMPARISON: Chest radiograph 02/27/2021 TECHNIQUE: AP upright view of the chest FINDINGS: The heart is normal in size. Lungs are adequately expanded. No consolidation, pleural effu alan, or pneumothorax. No acute osseous abnormality. IMPRESSION: No acute cardiopulmonary abnormality. Electronically signed by: Deanna Vance MD (03/22/2021 7:41 AM) [id number]
[2021-03-22] MEDS ORDERED: ALBUTEROL SULFATE 8GM INHALER. INH ONE (07:45)
[2021-03-22 08:14] LABS: BASO # 0.1 x10^3/uL (0.0-0.2); BASO % 1 % (0-3); EOS # 0.3 x10^3/uL (0.0-0.7); EOS % 3 % (0-3); HEMOGLOBIN 14.2 g/dL (13.0-17.5); LYMPH # 1.4 x10^3/uL (1.0-4.8); LYMPH % 16 % (24-48); MEAN CORPUSCULAR HEMOGLOBIN 30 pg (25-35); MEAN CORPUSCULAR HGB CONC 34 g/dL (31-37); MEAN CORPUSCULAR VOLUME 90 fL (79-100); MONO # 0.8 x10^3/uL (0.0-1.1); MONO % 10 % (0-9); NEUT # 6.2 x10^3uL (1.8-7.7); NEUT % 70 % (31-73); PLATELET COUNT 47 x10^3/uL (140-400); RED BLOOD COUNT 4.68 x10^6/uL (4.30-5.70); RED CELL DISTRIBUTION WIDTH 13.4 % (11.5-14.5); WHITE BLOOD COUNT 8.8 x10^3/uL (4.0-11.0)
[2021-03-22 08:15] LABS: CALCIUM 9.5 mg/dL (8.5-10.1); CREATININE 0.9 mg/dL (0.7-1.3); GFR 88.3; POTASSIUM 4.4 mmol/L (3.5-5.1)
[2021-03-22 08:21] LABS: ALBUMIN 3.6 g/dL (3.4-5.0); ALBUMIN/GLOBULIN RATIO 1.1 (1.0-1.7); TOTAL BILIRUBIN 0.1 mg/dL (0.2-1.0); TOTAL PROTEIN 6.9 g/dL (6.4-8.2)
[2021-03-22 08:28] LABS: INFLUENZA A PATIENT NEGATIVE (NEGATIVE); INFLUENZA B PATIENT NEGATIVE (NEGATIVE)
[2021-03-22 08:37] LABS: PLT ESTIMATE DECREASED (ADEQUATE)
[2021-03-22 08:38] LABS: POLYCHROMASIA PRESENT
[2021-03-22 09:47] VITALS: BP 158/88
== END 2021-03-22 09:45 | disposition home or self-care (01) ==
LOC: ER 06:58
DX: F41.9 Anxiety disorder, unspecified (principal); R06.02 Shortness of breath; F17.220 Nicotine dependence, chewing tobacco, uncomplicated; Z20.822 Contact with and (suspected) exposure to COVID-19
CPT/HCPCS: 36415; 71045; 80053; 84484; 85025; 87428; 94640; 96360; 99284; J7030

== ENCOUNTER 2021-04-10 22:09 | Emergency (ER) | payer SELFPAY ==
[~2021-04-10] VITALS: Ht 177.8 cm; Wt 99.5 kg
--- NOTE | 2021-04-10 22:24 | PHYS DOC ---
Past History Past Medical History: Hepatitis Past Surgical History: Appendectomy, Cholecystectomy, Tonsillectomy, Other Additional Past Surgical Histo: colon resection for diverticulitis Smoking: Cigarettes Alcohol Use: Occasionally Drug Use: Cocaine, Marijuana General Adult HPI: HPI: ". I used to have numbness on Lt side my face...Tingling... .. but now it is on the Rt side of my head...".." I was to get a MRI .. but they are waiting until my Insurance kicks in... Patient is a 55 year old male who presents with above hx and complaints of of right-sided head tingling and numbness. Patient states he normally has tingling numbness on the left side. Patient denies any trauma. No recent travel. No severe ill contacts. Has been having atypical neuro symptoms for some time. Primarily tingling and numbness on the left side of head. Patient has seen neurology Dr. Salcido and has followed up primarily with Dr. Mathews. Patient states he has reduced his nicotine intake. Still smokes marijuana.. Patient has had a history of lower platelets. In the past. Has a past history of elevated LFTs. From has hepatitis. Patient has had previous abdomen surgeries appendectomy cholecystectomy and and had COVID tonsillectomy. He had a colon resection before diverticulitis. Patient denies any history immunosuppression. Review of Systems: Review of Systems: Constitutional: Denies fever or chills Eyes: Denies change in visual acuity HENT: Denies nasal congestion or sore throat. Complains of tingling on right side of scalp Respiratory: Denies cough or shortness of breath Cardiovascular: Denies chest pain or edema GI: Denies abdominal pain, nausea, vomiting, bloody stools or diarrhea : Denies dysuria Musculoskeletal: Denies back pain or joint pain Integument: Denies rash Neurologic: Denies headache, focal weakness or sensory changes Endocrine: Denies polyuria or polydipsia Lymphatic: Denies swollen glands Psychiatric: Denies depression or anxiety Family History: Family History: Noncontributory to presentation Current Medications: Current Meds: See nursing for home meds Allergies: Allergies: Allergies Coded Allergies Type Severity Reaction Last Updated Verified No Known Drug Allergies 03/22/21 No Physical Exam: PE: Constitutional: no acute distress, non-toxic appearance. [] HENT: Normocephalic, atraumatic, bilateral external ears normal, oropharynx moist, no oral exudates, nose normal. Missing multiple teeth in poor dentition Eyes: PERRLA, EOMI, conjunctiva normal, no discharge. [] Neck: Normal range of motion, no tenderness, supple, no stridor. [] Cardiovascular:Heart rate regular rhythm, no murmur [] Lungs & Thorax: Bilateral breath sounds equal apex with scattered wheezes on auscultation [] Abdomen: Bowel sounds normal, soft, no tenderness, no masses, no pulsatile masses. Obese. Small fluid wave. Old surgery scars. Skin: Warm, dry, no erythema, no rash. Multiple tattoos. Back: No tenderness, no CVA tenderness. [] Extremities: No tenderness, no cyanosis, no clubbing, ROM intact, no edema. [] Neurologic: Alert and oriented X 3, normal motor function, normal sensory function, no focal deficits noted. No cording. Power Driven Brush Maker equal no drift. DTRs +2 patella and brachial. [id number]. GCS 15. NIHs 1- numbness Rt side scalp. Psychologic: Affect anxious, judgement normal, mood normal. [] EKG: EKG: My interpretation EKG shows sinus rhythm at 57 bpm. No acute morphology. Time of EKG is 00 13 minutes My interpretation second EKG is has some baseline movement artifact. Rate is 62. No findings acute STEMI with contralateral changes. Overall morphology is similar to prior EKG time of this EKG is 140 hours [] Radiology/Procedures: Radiology/Procedures: [ IMAGING REPORT Signed PATIENT: DIA CID ACCOUNT: [id number] : 1965 LOCATION: ER AGE: 55 SEX: M EXAM STATUS: REG ER ORD. PHYSICIAN: DUSTY KEATING MD REASON: dyspnea PROCEDURE: PORTABLE CHEST 1V XR CHEST 1V History: Dyspnea Comparison: 03/22/2021, 02/27/2021. Technique: Portable AP radiograph of the chest. Findings: The lungs are adequately inflated. Left greater than right lower lung linear opacities. No pleural effusion or pneumothorax. Cardiac mediastinal silhouette and pulmonary vasculature are within normal limits. Osseous structures and soft tissues are unremarkable. Impression: 1. Stranding opacities in the left greater than right lower lungs may represent atelectasis or scarring. Electronically signed by: Harvey Abdul MD (04/10/2021 11:01 PM) [facility] DICTATED AND SIGNED BY: HARVEY ABDUL MD DATE: 04/10/212258 CC: JASE MATHEWS MD; DUSTY KEATING MD ~MTH0 [address] [address] IMAGING REPORT Signed PATIENT: DIA CID ACCOUNT: [id number] : 1965 LOCATION: ER AGE: 55 SEX: M EXAM STATUS: REG ER ORD. PHYSICIAN: DUSTY KEATING MD REASON: facial numbness- Dr. Mathews request PROCEDURE: CT HEAD WO CONTRAST CT HEAD/BRAIN WO History: Facial numbness Comparison: 02/27/2021 Technique: Noncontrast CT imaging was performed of the head. Findings: No intracranial hemorrhage. No mass effect. No hydrocephalus. No evidence of acute territorial infarction. Imaged orbits are unremarkable. Imaged paranasal sinuses and mastoid air cells are clear. The scalp and calvarium are unremarkable. Impression: 1. No acute intracranial abnormality. ----- Exposure: One or more of the following individualized dose reduction techniques were utilized for this examination: 1. Automated exposure control 2. Adjustment of the mA and/or kV according to patient size 3. Use of iterative reconstruction technique. Electronically signed by: Harvey Abdul MD (04/10/2021 10:59 PM) [facility] DICTATED AND SIGNED BY: HARVEY ABDUL MD DATE: 04/10/212257 CC: JASE MATHEWS MD; DUSTY KEATING MD ~MTH0 0 ][address] [address] IMAGING REPORT Signed PATIENT: DIA CID ACCOUNT: [id number] : 1965 LOCATION: ER AGE: 55 SEX: M EXAM STATUS: REG ER ORD. PHYSICIAN: DUSTY KEATING MD REASON: OMNI 350,80ML IV.New Rt sided facial numbness PROCEDURE: CT ANGIOGRAPHY HEAD AND NECK EXAM: CTA HEAD AND NECK W/WO CONTRAST DATE: 04/10/2021 10:44 PM INDICATION: New Rt sided facial numbness TECHNIQUE: CTA angiogram of the head and neck was obtained after IV bolus administration of 80 cc of Omnipaque 350. The images were sent to workstation and multiplanar reconstructions were obtained. Multiplanar reconstruction images to include MIP and 3-D reconstruction images are submitted. One or more of the following dose reduction techniques were utilized: Automated exposure control (AEC), Adjustment of mA and/or kV according to patient size, Use of iterative reconstruction technique such as ASiR, CT scan done according to ALARA and image gently/image wisely COMPARISON: Noncontrast CT head done earlier the same day. FINDINGS: CTA Head: The visualized distal internal carotid arteries, anterior and middle cerebral arteries are patent and normal caliber. The distal vertebral arteries, basilar artery, and posterior cerebral arteries are patent and normal caliber. No aneurysm or arteriovenous malformation is seen. CTA Neck: Right carotid: The right common carotid artery is patent and normal caliber. The carotid bifurcation is normal. No stenosis of the right internal carotid artery per NASCET criteria. The right external carotid artery is patent. Left carotid: The left common carotid artery is patent and normal caliber. The carotid bifurcation is normal. No stenosis of the left internal carotid artery per NASCET criteria. The left external carotid artery is patent. Right vertebral: The right vertebral artery is patent and normal caliber. Left vertebral: The left vertebral artery is patent and normal caliber. The visualized portions of the aortic arch are normal. The origins of the brachiocephalic and subclavian arteries are normal. No cervical lymphadenopathy. The thyroid gland is normal. The parotid and submandibular glands are normal. The visualized aerodigestive tract is unremarkable. Mild multilevel degenerative disc height loss. The visualized portions of the lungs demonstrate mild paraseptal emphysema. IMPRESSION: 1. No intracranial large vessel occlusion. 2. No stenosis of the cervical carotid or vertebral arteries. PQRS Compliance Statement - Stenosis calculations for CT, MR and conventional angiography are based upon measurement of the distal ICA diameter in accordance with the NASCET methodology. Electronically signed by: Keanu Barajas MD (04/10/2021 11:31 PM) [facility] DICTATED AND SIGNED BY: KEANU BARAJAS MD DATE: 04/10/21 2328 CC: JASE MATHEWS MD; DUSTY KEATING MD ~MTH0 0 Heart Score: C/O Chest Pain: No HEART Score for Chest Pain: HEART Score for Chest Pain Response (Comments) Value History Slighlty/Non-Suspicious 0 ECG Nonspecific Repolarizatio 1 Age >45 - < 65 1 Risk Factors 1 or 2 Risk Factors 1 Troponin < Normal Limit 0 Total 3 Risk Factors: Risk Factors: DM, Current or recent (<one month) smoker, HTN, HLP, family history of CAD, obesity. Risk Scores: Score 0 - 3: 2.5% MACE over next 6 weeks - Discharge Home Score 4 - 6: 20.3% MACE over next 6 weeks - Admit for Clinical Observation Score 7 - 10: 72.7% MACE over next 6 weeks - Early Invasive Strategies Course & Med Decision Making: Course & Med Decision Making Pertinent Labs and Imaging studies reviewed. (See chart for details) Patient follow-up with Dr. Reinoso, and Dr. Mathews. Recommend take of a baby aspirin every other day. Patient stop all tobacco products. Patient stop marijuana use. Patient stop illicit drugs. Consider MRI. Return if any concerns. Pt. declined to wait for second Trop., results. Requested discharge home. Impression: 1. TIA vs atypical migraine 2. Hx. HTN 3. Hx.Tobacco Use 4. Hx Hepatits 5. Thrombocytopenia 101 6. Drug Screen + for Marijuana and Cocaine [] Dragon Disclaimer: Dragon Disclaimer: This electronic medical record was generated, in whole or in part, using a voice recognition dictation system. Departure Departure: Referrals: JASE MATHEWS MD (PCP) Dragon Disclaimer This chart was dictated in whole or in part using Voice Recognition software in a busy, high-work load, and often noisy Emergency Department environment. It may contain unintended and wholly unrecognized errors or omissions. Dragon Disclaimer This chart was dictated in whole or in part using Voice Recognition software in a busy, high-work load, and often noisy Emergency Department environment. It may contain unintended and wholly unrecognized errors or omissions. DUSTY KEATING MD Apr 10, 2021 22:24
[2021-04-10] MEDS ORDERED: IV RINGERS SOLUTION,LACTATED 1,000 ML IV SCH (22:30)
[2021-04-10] MEDS ORDERED: IOHEXOL 350 MG/ML 100 ML VIAL. IV ONE (23:00)
--- NOTE | 2021-04-10 23:01 | RAD ---
CT HEAD/BRAIN WO History: Facial numbness Comparison: 02/27/2021 Technique: Noncontrast CT imaging was performed of the head. Findings: No intracranial hemorrhage. No mass effect. No hydrocephalus. No evidence of acute territorial infar ction. Imaged orbits are unremarkable. Imaged paranasal sinuses and mastoid air cells are clear. The scalp a nd calvarium are unremarkable. Impression: 1. No acute intracranial abnormality. ----- Exposure: One or more of the following individualized dose reduction techniques were utilized for thi s examination: 1. Automated exposure control 2. Adjustment of the mA and/or kV according to patient size 3. Use of iterative reconstruction technique. Electronically signed by: Harvey Reyes MD (04/10/2021 10:59 PM) [facility]
--- NOTE | 2021-04-10 23:03 | RAD ---
XR CHEST 1V History: Dyspnea Comparison: 03/22/2021, 02/27/2021. Technique: Portable AP radiograph of the chest. Findings: The lungs are adequately inflated. Left greater than right lower lung linear opacities. No pleural ef fusion or pneumothorax. Cardiac mediastinal silhouette and pulmonary vasculature are within normal li mits. Osseous structures and soft tissues are unremarkable. Impression: 1. Stranding opacities in the left greater than right lower lungs may represent atelectasis or scarr ing. Electronically signed by: Harvey Reyes MD (04/10/2021 11:01 PM) [facility]
[2021-04-10 23:16] LABS: BASO # 0.1 x10^3/uL (0.0-0.2); BASO % 1 % (0-3); EOS # 0.3 x10^3/uL (0.0-0.7); EOS % 4 % (0-3); HEMATOCRIT 42.3 % (39.0-53.0); HEMOGLOBIN 14.1 g/dL (13.0-17.5); LYMPH # 1.9 x10^3/uL (1.0-4.8); LYMPH % 23 % (24-48); MEAN CORPUSCULAR HEMOGLOBIN 30 pg (25-35); MEAN CORPUSCULAR HGB CONC 33 g/dL (31-37); MEAN CORPUSCULAR VOLUME 90 fL (79-100); MONO # 1.1 x10^3/uL (0.0-1.1); MONO % 12 % (0-9); NEUT # 5.2 x10^3uL (1.8-7.7); NEUT % 61 % (31-73); PLATELET COUNT 101 x10^3/uL (140-400); RED CELL DISTRIBUTION WIDTH 13.2 % (11.5-14.5); WHITE BLOOD COUNT 8.6 x10^3/uL (4.0-11.0)
[2021-04-10 23:18] LABS: ANION GAP 8 (6-14); BLOOD UREA NITROGEN 19 mg/dL (8-26); CALCIUM 9.3 mg/dL (8.5-10.1); CARBON DIOXIDE 27 mmol/L (21-32); CHLORIDE 107 mmol/L (98-107); GFR 78.2; GLUCOSE 101 mg/dL (70-99); POTASSIUM 4.4 mmol/L (3.5-5.1); SODIUM 142 mmol/L (136-145)
[2021-04-10 23:31] LABS: ALBUMIN 3.8 g/dL (3.4-5.0); ALK PHOS 71 U/L (46-116); ALT (SGPT) 22 U/L (16-63); AST (SGOT) 19 U/L (15-37); DIRECT BILIRUBIN 0.1 mg/dL (0.0-0.2); LIPASE 117 U/L (73-393); MAGNESIUM 2.5 mg/dL (1.8-2.4); TOTAL BILIRUBIN 0.2 mg/dL (0.2-1.0); TOTAL PROTEIN 7.1 g/dL (6.4-8.2)
--- NOTE | 2021-04-10 23:33 | RAD ---
EXAM: CTA HEAD AND NECK W/WO CONTRAST DATE: 04/10/2021 10:44 PM INDICATION: New Rt sided facial numbness TECHNIQUE: CTA angiogram of the head and neck was obtained after IV bolus administration of 80 cc of Omnipaque 350. The images were sent to workstation and multiplanar reconstructions were obtained. Mu ltiplanar reconstruction images to include MIP and 3-D reconstruction images are submitted. One or more of the following dose reduction techniques were utilized: Automated exposure control (AEC ), Adjustment of mA and/or kV according to patient size, Use of iterative reconstruction technique wolff ch as ASiR, CT scan done according to ALARA and image gently/image wisely COMPARISON: Noncontrast CT head done earlier the same day. FINDINGS: CTA Head: The visualized distal internal carotid arteries, anterior and middle cerebral arteries are patent and normal caliber. The distal vertebral arteries, basilar artery, and posterior cerebral arteries are p atent and normal caliber. No aneurysm or arteriovenous malformation is seen. CTA Neck: Right carotid: The right common carotid artery is patent and normal caliber. The carotid bifurcation is normal. No stenosis of the right internal carotid artery per NASCET criteria. The right external c arotid artery is patent. Left carotid: The left common carotid artery is patent and normal caliber. The carotid bifurcation is normal. No stenosis of the left internal carotid artery per NASCET criteria. The left external carot id artery is patent. Right vertebral: The right vertebral artery is patent and normal caliber. Left vertebral: The left vertebral artery is patent and normal caliber. The visualized portions of the aortic arch are normal. The origins of the brachiocephalic and subclav elliott arteries are normal. No cervical lymphadenopathy. The thyroid gland is normal. The parotid and submandibular glands are no rmal. The visualized aerodigestive tract is unremarkable. Mild multilevel degenerative disc height loss. The visualized portions of the lungs demonstrate mild paraseptal emphysema. IMPRESSION: 1. No intracranial large vessel occlusion. 2. No stenosis of the cervical carotid or vertebral arteries. PQRS Compliance Statement - Stenosis calculations for CT, MR and conventional angiography are based u darryn measurement of the distal ICA diameter in accordance with the NASCET methodology. Electronically signed by: Torres Barajas MD (04/10/2021 11:31 PM) [facility]
[2021-04-10 23:39] LABS: BILIRUBIN,URINE NEG (NEG); CLARITY,URINE CLEAR; COLOR,URINE YELLOW; GLUCOSE,URINE NEG (NEG); NITRITE,URINE NEG (NEG); UROBILINOGEN,URINE 0.2 mg/dL (0.2 mg/dL)
[2021-04-10 23:41] LABS: BACTERIA,URINE 0 /HPF (0-FEW)
[2021-04-10 23:42] LABS: SQUAMOUS EPITHELIAL CELL,UR OCC /LPF
[2021-04-10 23:46] LABS: BARBITURATES NEG (NEG); BENZODIAZEPINES POS (NEG); CANNABINOIDS POS (NEG); COCAINE POS (NEG); METHADONE NEG (NEG); OPIATES NEG (NEG); PHENCYCLIDINE NEG (NEG)
[2021-04-10 23:52] LABS: AMPHETAMINE/METHAMPHETAMINE NEG (NEG)
[2021-04-11] MEDS ORDERED: ASPIRIN 325 MG TABLET PO ONE (01:15)
--- NOTE | 2021-04-11 01:51 | EKG ---
[address] [address] Test Date: 2021-04-11 Test Time: 00:13:14 Pat Name: DIA CID Department: Room: Gender: M Gum Sprayer: ANTOINE : 1965 Requested By: DUSTY KEATING Order Number: [id number] Reading MD: Jamar Fitch Measurements Intervals Check Rate: 57 P: 55 WI: 192 QRS: 10 QRSD: 102 T: 47 QT: 394 QTc: 386 Interpretive Statements SINUS RHYTHM Electronically Signed On 04-12-2021 13:55:22 STERILE PROCESSING MANAGER by Jamar Fitch
--- NOTE | 2021-04-11 01:52 | EKG ---
[address] [address] Test Date: 2021-04-11 Test Time: 01:40:16 Pat Name: DIA CID Department: Room: Gender: M Critical Care Unit Nurse: ANTOINE : 1965 Requested By: DUSTY KEATING Order Number: [id number] Reading MD: Jamar Fitch Measurements Intervals [place] Rate: 62 P: MA: QRS: 30 QRSD: 102 T: 52 QT: 386 QTc: 394 Interpretive Statements SINUS RHYTHM Electronically Signed On 04-12-2021 13:55:13 TRAFFIC INVESTIGATOR by Jamar Fitch
[2021-04-11 01:59] LABS: INFLUENZA A PATIENT NEGATIVE (NEGATIVE); INFLUENZA B PATIENT NEGATIVE (NEGATIVE)
[2021-04-11 03:13] VITALS: BP 104/69
--- NOTE | 2021-04-13 04:10 | EKG ---
[address] [address] Test Date: 2021-04-13 Test Time: 01:24:22 Pat Name: DIA CID Department: Room: Gender: M Surgery Specialist: ANTOINE : 1965 Requested By: DUSTY KEATING Order Number: [id number] Reading MD: Measurements Intervals Roxana Rate: 68 P: 33 IL: 176 QRS: 64 QRSD: 100 T: 21 QT: 366 QTc: 394 Interpretive Statements SINUS RHYTHM OTHERWISE NORMAL ECG RI6.01 No previous ECG available for comparison
== END 2021-04-11 03:14 | disposition home or self-care (01) ==
LOC: ER 22:09
DX: D69.6 Thrombocytopenia, unspecified (principal); I10 Essential (primary) hypertension; F12.10 Cannabis abuse, uncomplicated; F14.10 Cocaine abuse, uncomplicated; F17.210 Nicotine dependence, cigarettes, uncomplicated
CPT/HCPCS: 36415; 70450; 70496; 70498; 71045; 80048; 80076; 80307; 81001; 82550; 83690; 83735; 83880; 84443; 84484; 85025; 85379; 85610; 85730; 87428; 93005; 96360; 96361; 99285; J7120

== ENCOUNTER 2021-04-13 00:52 | Emergency (ER) | payer SELFPAY ==
[~2021-04-13] VITALS: Ht 177.8 cm; Wt 99.5 kg
--- NOTE | 2021-04-13 00:59 | PHYS DOC ---
Past History Past Medical History: Hepatitis, TIA Past Surgical History: Appendectomy, Cholecystectomy, Tonsillectomy, Other Additional Past Surgical Histo: colon resection for diverticulitis Smoking: Cigarettes Alcohol Use: None Drug Use: Cocaine, Marijuana General Adult HPI: HPI: ".. I am still getting this numbness on Lt side my head... I have always had it there.,, but the last two times I was here the Numbness switched to Rt. side my head.. .. " Patient is a 55 year old male who presents with above hx and complaints right side of head tingling and numbness. Patient states numbness on the right side of scalp tonight has been constant last 3 hours. Patient denies any trauma. Patient denies any changes in meds. Patient states the right side head tingling and numbness has been off and on as far back as 04/07/2021. Patient was seen on 04/10/2021 for similar symptoms. Patient had no recent travel. No specific ill contacts. Patient has had a history of atypical neuro symptoms for some time. History of hypertension. Patient normally follows with neurology Dr. Salcido and Dr. Rodriguez as his primary. Patient still is smoking. Patient still smokes marijuana. Patient on previous visit did have lower platelets. He has had history of elevated LFTs in the past from his hepatitis. Patient has had previous abdomen surgeries consisting of appendectomy, cholecystectomy and tonsillectomy. He has had COVID infection. Did have a colon resection for di verticulitis. Denies any history of immunosuppression. Patient currently works at [employer] Patient's drug screen was positive for marijuana and cocaine on last visit. Patient denies those use of those substance today. Review of Systems: Review of Systems: Constitutional: Denies fever or chills Eyes: Denies change in visual acuity HENT: Denies nasal congestion or sore throat. The patient complains of numbness on right side of head Respiratory: Denies cough or shortness of breath Cardiovascular: Denies chest pain or edema GI: Denies abdominal pain, nausea, vomiting, bloody stools or diarrhea : Denies dysuria Musculoskeletal: Denies back pain or joint pain Integument: Denies rash Neurologic: Denies headache, focal weakness or sensory changes Endocrine: Denies polyuria or polydipsia Lymphatic: Denies swollen glands Psychiatric: Denies depression or anxiety Family History: Family History: Noncontributory to presentation Current Medications: Current Meds: See nursing for home meds Allergies: Allergies: Allergies Coded Allergies Type Severity Reaction Last Updated Verified No Known Drug Allergies 03/22/21 No Physical Exam: PE: Constitutional: no acute distress, non-toxic appearance. [] HENT: Normocephalic, atraumatic, bilateral external ears normal, oropharynx moist, no oral exudates, nose normal. Poor dentition Eyes: PERRLA, EOMI, conjunctiva normal, no discharge. [] No field deficits Neck: Normal range of motion, no tenderness, supple, no stridor. No bruits Cardiovascular:Heart rate regular rhythm, no murmur [. PMI to left Lungs & Thorax: Bilateral breath sounds at apex with scattered wheezes on auscultation [] Abdomen: Bowel sounds normal, soft, no tenderness, no masses, no pulsatile masses. [] Surgical scars Skin: Warm, dry, no erythema, no rash. Tattoos Back: No tenderness, no CVA tenderness. [] Extremities: No tenderness, no cyanosis, no clubbing, ROM intact, no edema. [] Neurologic: Alert and oriented X 3, normal motor function, normal sensory function, no focal deficits noted. [] DTRs +2 patella and brachial. Sap Basis equal. No drift. [id number]. Jong Coma Scale 15. NIH SS 1- numbness. Patient is ambulatory without problems Psychologic: Affect normal, judgement normal, mood normal. [] EKG: EKG: My interpretation EKG shows a sinus rhythm at 68 bpm. No acute morphology. Time of EKG is 124 hours [] Radiology/Procedures: Radiology/Procedures: [[address] [address] IMAGING REPORT Signed PATIENT: DIA CID ACCOUNT: [id number] : 1965 LOCATION: ER AGE: 55 SEX: M EXAM STATUS: REG ER ORD. PHYSICIAN: DUSTY KEATING MD REASON: dyspnea PROCEDURE: PORTABLE CHEST 1V XR CHEST 1V 04/13/2021 1:20 AM INDICATION: Dyspnea COMPARISON: None available TECHNIQUE: Portable frontal view of the chest is provided. FINDINGS: The cardiomediastinal silhouette is within normal limits. Lungs are clear. Mild interstitial opacities at the lung bases appear chronic and may represent subsegmental atelectasis or scarring. There are no significant pleural effusions. There is no pulmonary vascular congestion. No pneumothorax. No suspicious osseous abnormality. IMPRESSION: There is no acute cardiopulmonary process. Mild interstitial opacities at the lung bases appear chronic and may represent subsegmental atelectasis or scarring. Electronically signed by: Omega Washington MD (04/13/2021 1:55 AM) [facility] DICTATED AND SIGNED BY: OMEGA WASHINGTON MD DATE: 04/13/21 0155 CC: JASE MATHEWS MD; DUSTY KEATING MD ~[facility] [address] [place] [address] IMAGING REPORT Signed PATIENT: DIA CID ACCOUNT: [id number] : 1965 LOCATION: ER AGE: 55 SEX: M EXAM STATUS: REG ER ORD. PHYSICIAN: DUSTY KEATING MD REASON: TIA, Numbness, recurrent episodes PROCEDURE: CT HEAD WO CONTRAST PQRS Compliance Statement: One or more of the following individualized dose reduction techniques were utilized for this examination: 1. Automated exposure control 2. Adjustment of the mA and/or kV according to patient size 3. Use of iterative reconstruction technique CT head without contrast 04/13/2021 1:40 AM INDICATION: TIA, numbness COMPARISON: Head CT 04/10/2021 TECHNIQUE: Multiple axial CT images of the head were obtained from skull base through the vertex without intravenous contrast. FINDINGS: Head: Ventricles, sulci and basal cisterns are within normal limits. There is no hydrocephalus. Aguilera-white matter differentiation is normal. There is no acute intracranial hemorrhage. There is no mass, mass effect or midline shift. Posterior fossa is normal in appearance. Visualized portions of the orbits are normal. Mild mucosal thickening of the right posterior ethmoid air cells and right sphenoid sinus. Mastoid air cells are well aerated. Scalp and calvaria are normal. IMPRESSION: No acute intracranial hemorrhage. Electronically signed by: Omega Washington MD (04/13/2021 1:59 AM) [facility] DICTATED AND SIGNED BY: OMEGA WASHINGTON MD DATE: 04/13/21154 CC: JASE MATHEWS MD; DUSTY KEATING MD ~[facility] 0 ][place] [address] IMAGING REPORT Signed PATIENT: DIA CID ACCOUNT: [id number] : 1965 LOCATION: ER AGE: 55 SEX: M EXAM STATUS: REG ER ORD. PHYSICIAN: DUSTY KEATING MD REASON: TIA, Numbness, recurrent episodes PROCEDURE: CT ANGIOGRAPHY HEAD AND NECK PQRS Compliance Statement: One or more of the following individualized dose reduction techniques were utilized for this examination: 1. Automated exposure control 2. Adjustment of the mA and/or kV according to patient size 3. Use of iterative reconstruction technique CTA HEAD AND NECK W/WO CONTRAST 04/13/2021 1:40 AM INDICATION: TIA, numbness COMPARISON: CT head 04/13/2021 TECHNIQUE: . Multiple axial CT images of the head and neck were obtained after the intravenous administration of nonionic contrast. Coronal and sagittal reformats are provided. Maximum intensity projection images are provided. Stenosis calculations for CT, MR, and conventional angiography are based upon measurements of the distal ICA diameter in accordance with the NASCET methodology. Stenosis calculations for carotid ultrasound studies are derived from validated velocity criteria which are known to correlate with the NASCET me thodology. FINDINGS: Ventricles, sulci and basal cisterns are normal in appearance. Aguilera-white matter differentiation is preserved. There is no mass, mass effect or midline shift. Posterior fossa is normal in appearance. Sella and suprasellar cistern appear normal. Orbits are normal in appearance . Scalp and calvaria appear intact. Mild mucosal thickening of the right maxillary sinus. Mastoid air cells are well aerated. Mild paraseptal pulmonary emphysema. Thyroid gland is normal in appearance. Neck soft tissues are normal in appearance. No pathologically enlarged cervical lymphadenopathy. Pharynx and larynx appear intact. Vascular findings: There is a normal three-vessel aortic arch. Origins of the brachiocephalic vessels are widely patent. Right common carotid artery is normal in course and caliber. No significant atherosclerotic changes are identified at the right carotid bifurcation. No significant stenosis of the right cervical internal carotid artery. External carotid artery is widely patent. Left common carotid artery is normal in course and caliber. No significant atherosclerotic changes are identified at the left carotid bifurcation. No significant stenosis of the left cervical internal carotid artery. External carotid artery is widely patent. Vertebral arteries are normal in course and caliber. Intracranial segments of internal carotid arteries are normal in course and caliber. There is mild calcified atheromatous plaque involving the cavernous segments without significant stenosis. Origins of the ophthalmic segments of the internal carotid artery appears widely patent. Middle cerebral arteries are normal in course and caliber with patent sylvian branches. Anterior cerebral arteries are normal in course and caliber. Anterior communicating artery is visualized. Basilar artery is normal in course and caliber. Superior cerebellar arteries are widely patent. Posterior cerebral arteries are normal in course and caliber. There is no aneurysm, vascular malformation or high-grade stenosis/large vessel occlusion involving pauma of Silver. Superior sagittal sinus is patent. IMPRESSION: 1. There is no evidence for acute intracranial hemorrhage. 2. There is no evidence for hemodynamically significant carotid stenosis. 3. There is no aneurysm, vascular malformation or high-grade stenosis/large vessel occlusion involving the pauma of Silver. Electronically signed by: Omega Washington MD (04/13/2021 2:22 AM) [facility] DICTATED AND SIGNED BY: OMEGA WASHINGTON MD DATE: 04/13/21218 CC: JASE MATHEWS MD; DUSTY KEATING MD ~[facility] 0 Heart Score: C/O Chest Pain: N/A HEART Score for Chest Pain: HEART Score for Chest Pain Response (Comments) Value History Slighlty/Non-Suspicious 0 ECG Normal 0 Age >45 - < 65 1 Risk Factors 1 or 2 Risk Factors 1 Troponin < Normal Limit 0 Total 2 Risk Factors: Risk Factors: DM, Current or recent (<one month) smoker, HTN, HLP, family history of CAD, obesity. Risk Scores: Score 0 - 3: 2.5% MACE over next 6 weeks - Discharge Home Score 4 - 6: 20.3% MACE over next 6 weeks - Admit for Clinical Observation Score 7 - 10: 72.7% MACE over next 6 weeks - Early Invasive Strategies Course & Med Decision Making: Course & Med Decision Making Pertinent Labs and Imaging studies reviewed. (See chart for details) Patient states symptoms have resolved. Patient requesting discharge. Pt. currently declining admission. Patient take a daily baby aspirin every other day. Patient to avoid all nicotine products and illicit drugs. Patient to follow-up with Dr. Rodriguez. Patient follow-up with patient return if any concerns. Impression: 1. TIA 2. Head Tingling and numbness 3. Tobacco use. 4. Drug screen positive for marijuana, benzodiazepines and cocaine 5. Thrombocytopenia 103 [] Dragon Disclaimer: Dragon Disclaimer: This electronic medical record was generated, in whole or in part, using a voice recognition dictation system. Departure Departure: Referrals: JASE MATHEWS MD (PCP) Dragon Disclaimer This chart was dictated in whole or in part using Voice Recognition software in a busy, high-work load, and often noisy Emergency Department environment. It may contain unintended and wholly unrecognized errors or omissions. Dragon Disclaimer This chart was dictated in whole or in part using Voice Recognition software in a busy, high-work load, and often noisy Emergency Department environment. It may contain unintended and wholly unrecognized errors or omissions. Dragon Disclaimer This chart was dictated in whole or in part using Voice Recognition software in a busy, high-work load, and often noisy Emergency Department environment. It may contain unintended and wholly unrecognized errors or omissions. DUSTY KEATING MD Apr 13, 2021 00:59
[2021-04-13] MEDS ORDERED: IV RINGERS SOLUTION,LACTATED 1,000 ML IV SCH (01:15)
[2021-04-13 01:19] VITALS: BP 138/84
[2021-04-13] MEDS ORDERED: IOHEXOL 350 MG/ML 100 ML VIAL. IV ONE (01:30)
--- NOTE | 2021-04-13 01:58 | RAD ---
XR CHEST 1V 04/13/2021 1:20 AM INDICATION: Dyspnea COMPARISON: None available TECHNIQUE: Portable frontal view of the chest is provided. FINDINGS: The cardiomediastinal silhouette is within normal limits. Lungs are clear. Mild interstitial opacitie s at the lung bases appear chronic and may represent subsegmental atelectasis or scarring. There are no significant pleural effusions. There is no pulmonary vascular congestion. No pneumothora x. No suspicious osseous abnormality. IMPRESSION: There is no acute cardiopulmonary process. Mild interstitial opacities at the lung bases appear chronic and may represent subsegmental atelectas is or scarring. Electronically signed by: Leela Watson MD (04/13/2021 1:55 AM) [facility]
[2021-04-13 02:00] LABS: BASO # 0.1 x10^3/uL (0.0-0.2); BASO % 1 % (0-3); EOS # 0.2 x10^3/uL (0.0-0.7); EOS % 3 % (0-3); HEMATOCRIT 39.2 % (39.0-53.0); HEMOGLOBIN 13.1 g/dL (13.0-17.5); LYMPH # 1.5 x10^3/uL (1.0-4.8); LYMPH % 20 % (24-48); MEAN CORPUSCULAR HEMOGLOBIN 30 pg (25-35); MEAN CORPUSCULAR HGB CONC 34 g/dL (31-37); MEAN CORPUSCULAR VOLUME 90 fL (79-100); MONO # 0.8 x10^3/uL (0.0-1.1); MONO % 11 % (0-9); NEUT # 4.9 x10^3uL (1.8-7.7); NEUT % 66 % (31-73); PLATELET COUNT 103 x10^3/uL (140-400); RED BLOOD COUNT 4.36 x10^6/uL (4.30-5.70); WHITE BLOOD COUNT 7.5 x10^3/uL (4.0-11.0)
--- NOTE | 2021-04-13 02:01 | RAD ---
RS Compliance Statement: One or more of the following individualized dose reduction techniques were utilized for this examinat ion: 1. Automated exposure control 2. Adjustment of the mA and/or kV according to patient size 3. Use of iterative reconstruction technique CT head without contrast 04/13/2021 1:40 AM INDICATION: TIA, numbness COMPARISON: Head CT 04/10/2021 TECHNIQUE: Multiple axial CT images of the head were obtained from skull base through the vertex with out intravenous contrast. FINDINGS: Head: Ventricles, sulci and basal cisterns are within normal limits. There is no hydrocephalus. Aguilera-white matter differentiation is normal. There is no acute intracranial hemorrhage. There is no mass, mass e ffect or midline shift. Posterior fossa is normal in appearance. Visualized portions of the orbits are normal. Mild mucosal thickening of the right posterior ethmoid air cells and right sphenoid sinus. Mastoid air cells are well aerated. Scalp and calvaria are normal . IMPRESSION: No acute intracranial hemorrhage. Electronically signed by: Leela Watson MD (04/13/2021 1:59 AM) [facility]
[2021-04-13 02:07] LABS: CALCIUM 9.3 mg/dL (8.5-10.1); GFR 78.2; POTASSIUM 3.9 mmol/L (3.5-5.1)
[2021-04-13 02:19] LABS: ALBUMIN 3.7 g/dL (3.4-5.0); DIRECT BILIRUBIN 0.1 mg/dL (0.0-0.2); MAGNESIUM 2.4 mg/dL (1.8-2.4); TOTAL BILIRUBIN 0.3 mg/dL (0.2-1.0); TOTAL PROTEIN 7.1 g/dL (6.4-8.2)
--- NOTE | 2021-04-13 02:24 | RAD ---
PQRS Compliance Statement: One or more of the following individualized dose reduction techniques were utilized for this examinat ion: 1. Automated exposure control 2. Adjustment of the mA and/or kV according to patient size 3. Use of iterative reconstruction technique CTA HEAD AND NECK W/WO CONTRAST 04/13/2021 1:40 AM INDICATION: TIA, numbness COMPARISON: CT head 04/13/2021 TECHNIQUE: . Multiple axial CT images of the head and neck were obtained after the intravenous admini stration of nonionic contrast. Coronal and sagittal reformats are provided. Maximum intensity project ion images are provided. Stenosis calculations for CT, MR, and conventional angiography are based upon measurements of the dis veto ICA diameter in accordance with the NASCET methodology. Stenosis calculations for carotid ultraso und studies are derived from validated velocity criteria which are known to correlate with the NASCET methodology. FINDINGS: Ventricles, sulci and basal cisterns are normal in appearance. Aguilera-white matter differentiation is p reserved. There is no mass, mass effect or midline shift. Posterior fossa is normal in appearance. Se lla and suprasellar cistern appear normal. Orbits are normal in appearance . Scalp and calvaria appea r intact. Mild mucosal thickening of the right maxillary sinus. Mastoid air cells are well aerated. Mild paraseptal pulmonary emphysema. Thyroid gland is normal in appearance. Neck soft tissues are nor mal in appearance. No pathologically enlarged cervical lymphadenopathy. Pharynx and larynx appear int act. Vascular findings: There is a normal three-vessel aortic arch. Origins of the brachiocephalic vessels are widely patent. Right common carotid artery is normal in course and caliber. No significant atherosclerotic changes a re identified at the right carotid bifurcation. No significant stenosis of the right cervical interna l carotid artery. External carotid artery is widely patent. Left common carotid artery is normal in course and caliber. No significant atherosclerotic changes ar e identified at the left carotid bifurcation. No significant stenosis of the left cervical internal c arotid artery. External carotid artery is widely patent. Vertebral arteries are normal in course and caliber. Intracranial segments of internal carotid arteries are normal in course and caliber. There is mild ca lcified atheromatous plaque involving the cavernous segments without significant stenosis. Origins of the ophthalmic segments of the internal carotid artery appears widely patent. Middle cerebral arteri es are normal in course and caliber with patent sylvian branches. Anterior cerebral arteries are nor mal in course and caliber. Anterior communicating artery is visualized. Basilar artery is normal in course and caliber. Superior cerebellar arteries are widely patent. Poste rior cerebral arteries are normal in course and caliber. There is no aneurysm, vascular malformation or high-grade stenosis/large vessel occlusion involving c ircle of Silver. Superior sagittal sinus is patent. IMPRESSION: 1. There is no evidence for acute intracranial hemorrhage. 2. There is no evidence for hemodynamically significant carotid stenosis. 3. There is no aneurysm, vascular malformation or high-grade stenosis/large vessel occlusion involvin g the [place] of [place]. Electronically signed by: Leela Watson MD (04/13/2021 2:22 AM) [facility]
[2021-04-13] MEDS ORDERED: ASPIRIN 325 MG TABLET PO ONE (02:45)
[2021-04-13 03:02] LABS: BARBITURATES NEG (NEG); BENZODIAZEPINES POS (NEG); CANNABINOIDS POS (NEG); COCAINE POS (NEG); METHADONE NEG (NEG); OPIATES NEG (NEG); PHENCYCLIDINE NEG (NEG)
[2021-04-13 03:04] LABS: BACTERIA,URINE 0 /HPF (0-FEW); CLARITY,URINE CLEAR; COLOR,URINE YELLOW; GLUCOSE,URINE NEG (NEG); NITRITE,URINE NEG (NEG); RBC,URINE RARE /HPF (0-2); SQUAMOUS EPITHELIAL CELL,UR OCC /LPF; UROBILINOGEN,URINE 0.2 mg/dL (0.2 mg/dL); WBC,URINE RARE /HPF (0-4)
[2021-04-13 03:12] LABS: AMPHETAMINE/METHAMPHETAMINE NEG (NEG)
== END 2021-04-13 03:20 | disposition home or self-care (01) ==
LOC: ER 00:52
DX: G45.9 Transient cerebral ischemic attack, unspecified (principal); R20.2 Paresthesia of skin; D69.6 Thrombocytopenia, unspecified; F17.210 Nicotine dependence, cigarettes, uncomplicated; F12.10 Cannabis abuse, uncomplicated; F14.10 Cocaine abuse, uncomplicated
CPT/HCPCS: 36415; 70450; 70496; 70498; 71045; 80048; 80076; 80307; 81001; 82550; 83690; 83735; 83880; 84443; 84484; 85025; 85379; 85610; 85730; 93005; 96360; 96361; 99285; J7120